=== PATIENT | female | born 1965 | race Caucasian/White ===

== ENCOUNTER 2018-01-10 11:46 | Day surgery (SDC) | payer OTHER ==
[2018-01-10] MEDS ORDERED: LACTATED RINGERS 1,000 ML IV ONE (12:24)
[2018-01-10] MEDS ORDERED: MIDAZOLAM 2 MG/2 ML VIAL IVP ONE (14:44)
[2018-01-10] MEDS ORDERED: fentaNYL 250 MCG/5 ML VIAL IVP ONE (14:44)
[2018-01-10] MEDS ORDERED: PROPOFOL 200 MG/20 ML VIAL IVP ONE ×2 (14:44→15:00)
[2018-01-10 15:55] VITALS: BP 135/67
== END 2018-01-10 11:47 | disposition home or self-care (01) ==
LOC: SDS 11:46
PROVIDERS: ATTEND Internal Medicine Gastroenterology
PROC: 0DBN8ZX Excision of Sigmoid Colon, Via Natural or Artificial Opening Endoscopic, Diagnostic (ICD-10-PCS; principal; 2018-01-10 13:15)
DX: Z12.11 Encounter for screening for malignant neoplasm of colon (principal); K63.5 Polyp of colon; I10 Essential (primary) hypertension; I47.1 Supraventricular tachycardia; E66.01 Morbid (severe) obesity due to excess calories
CPT/HCPCS: 45380; J3010; J7120; 88305